=== PATIENT | female | born 1975 | race Hispanic/Latino ===

== ENCOUNTER 2021-02-13 19:01 | Emergency (ER) | payer BC ==
[2021-02-13 19:58] VITALS: BP 145/89
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
== END 2021-02-14 01:10 | disposition home or self-care (01) ==
LOC: ED 19:01
DX: F41.9 Anxiety disorder, unspecified (principal); F32.9 Major depressive disorder, single episode, unspecified; Z59.0 Homelessness; Z88.0 Allergy status to penicillin; Z88.1 Allergy status to other antibiotic agents; Z79.899 Other long term (current) drug therapy
CPT/HCPCS: 99281